=== PATIENT | male | born 1975 | race Caucasian/White ===

== ENCOUNTER → 2022-03-29 | Outpatient (CLI) | payer MEDICARE, MEDICAID ==
--- NOTE | 2022-03-29 12:12 | Diagnostic Imaging Report ---
EXAMINATION: Left knee radiographs, 3 views. COMPARISON: None. HISTORY: 46-year-old male, fall. Left knee pain. FINDINGS: There is no identified acute fracture. There is no knee joint effusion. The joint spaces are well preserved. IMPRESSION: 1. Unremarkable radiographs of the left knee. Dictated by: Dictated on workstation # [id number]
== END ==
LOC: RAD 11:24
PROVIDERS: ATTEND Family Medicine
DX: M25.562 Pain in left knee (principal); W19.XXXA Unspecified fall, initial encounter
CPT/HCPCS: 73562